=== PATIENT | female | born 1975 | race Caucasian/White ===

== ENCOUNTER 2018-08-21 00:37 | Emergency (ER) | payer MEDICAID ==
--- NOTE | 2018-08-21 00:51 | Emergency Department Record ---
History of Present Illness - General Chief complaint: Lower Extremity Pain Stated complaint: FOOT INJURY/MAY HAVE PASSED OUT Time Seen by Provider: 08/21/18 00:45 Source: Patient, Family Mode of Arrival: Ambulatory Limitations: No limitations - History of Present Illness Initial comments: 43 yo female presents after tripping injuring her right foot. She was walking carrying something and mis-stepped. No has lateral foot pain. No other injuries. No history of recent illness or other issues. She is not sure what she tripped on but she recalls the whole event. MD Complaint: Extremity pain, Joint pain -: Hour(s) (1) Location: Right, Foot History of Same: No -: Yes Arthralgia Radiation: Distal Quality: Aching Consistency: Constant Improves with: Immobilization Worsens with: Walking Associated Symptoms: Denies other symptoms - Related Data Home Medications Medication Instructions Recorded Confirmed Last Taken Alprazolam [Xanax] 3 mg PO ASDIR PRN 08/21/18 08/21/18 Unknown Lamotrigine [Lamictal] 25 mg PO DAILY 08/21/18 08/21/18 Unknown Temazepam [Restoril] 15 mg PO QHS 08/21/18 08/21/18 Unknown Venlafaxine HCl [Effexor Xr] 225 mg PO DAILY 08/21/18 08/21/18 Unknown Allergies Allergy/AdvReac Type Severity Reaction Status Date / Time Penicillins Allergy HIVES Verified 08/21/18 00:50 Review of Systems Constitutional: Denies: Chills, Fever, Malaise, Weakness Eyes: Denies: Eye discharge ENT: Denies: Congestion, Throat pain Respiratory: Denies: Cough Cardiovascular: Denies: Chest pain, Dyspnea on exertion, Syncope Endocrine: Denies: Fatigue Gastrointestinal: Denies: Abdominal pain, Diarrhea, Nausea, Vomiting Genitourinary: Denies: Dysuria Musculoskeletal: Reports: Arthralgia Skin: Denies: Change in color, Rash Neurological: Denies: Headache, Numbness, Tremors, Vertigo, Weakness Psychiatric: Denies: Anxiety Hematological/Lymphatic: Denies: Easy bleeding, Easy bruising Physical Exam - General General Appearance: Alert, Oriented x3, Cooperative, No acute distress Limitations: No limitations - Head Head exam: Atraumatic, Normocephalic, Normal inspection - Eye Eye exam: Normal appearance, PERRL. negative: Conjunctival injection, Scleral icterus - ENT ENT exam: Normal exam Ear exam: Normal external inspection Nasal Exam: Normal inspection Mouth exam: Normal external inspection - Neck Neck exam: Normal inspection - Cardiovascular Cardiovascular Exam: Regular rate, Normal rhythm, Normal heart sounds Peripheral Pulses: 2+: Radial (R), Dorsalis Pedis (R) - Extremities Extremities exam: Normal inspection, Full ROM, Normal capillary refill, Tenderness. negative: Calf tenderness, Joint swelling, Pedal edema Image of Feet: 1 - tenderness to the lateral foot, normal inspeciton, intact skin - Neurological Neurological exam: Alert, Motor sensory deficit, Oriented X3. negative: Altered - Psychiatric Psychiatric exam: Normal affect, Normal mood. negative: Agitated, Anxious - Skin Skin exam: Dry, Intact, Normal color, Warm Course - Reevaluation(s) Reevaluation #1: 08/21/18 01:18 The preliminary XR was read as negative for acute fracture She will be placed in a boot for support and protection of the painful area of the lateral foot Disposition Disposition: Discharge Clinical Impression: Sprain of foot, right Qualifiers: Encounter type: initial encounter Qualified Code(s): S93.601A - Unspecified sprain of right foot, initial encounter Disposition: Home, Self-Care Condition: (1) Good Instructions: Foot Sprain (ED) Additional Instructions: Ice the sore area Call your doctor for a recheck in the next 1-2 week if any pain continues Use the supportive boot for 2-3 weeks until the pain is gone Forms: Patient Portal Access Time of Disposition: 01:19 Quality - Quality Measures Quality Measures: N/A - Blood Pressure Screening Does Patient Have Any of the Following: No Blood Pressure Classification: Normal BP Reading Systolic Measurement: 110 Diastolic Measurement: 70 Screening for High Blood Pressure: < Normal BP, F/U Not Required > [[id number]]
[2018-08-21] MEDS ORDERED: KETOROLAC 30 MG/ML VIAL IM ONE (01:20)
--- NOTE | 2018-08-21 14:33 | RADIOLOGY REPORT ---
EXAM: RIGHT FOOT HISTORY: FALL WITH LATERAL FOOT PAIN. TECHNIQUE: Three views of the right foot were obtained. Comparison: None. FINDINGS: No acute fracture is seen. Osseous alignment appear maintained. No radiopaque foreign bodies. IMPRESSION: NO ACUTE OSSEOUS FINDINGS. JOB NUMBER: [id number] MTDD
== END 2018-08-21 02:03 | disposition home or self-care (01) ==
LOC: ER 00:37
DX: S93.601A Unspecified sprain of right foot, initial encounter (principal); W18.09XA Striking against other object with subsequent fall, initial encounter
CPT/HCPCS: 29425; 99283; 96372; 99284; 73630; J1885